=== PATIENT | male | born 1995 | race Two or more races ===

== ENCOUNTER 2022-01-08 21:22 | Emergency (ER) | payer SELFPAY ==
[2022-01-08 21:54] LABS: BASOPHIL 0.3 % (0-2); EOSINOPHIL 4.1 % (0-5); HCT 45.8 % (42.0-52.0); HGB 15.8 g/dl (13.2-18.0); LYMPHOCYTE 37.4 % (15-48); MCH 30.2 pg (25.0-31.0); MCHC 34.5 g/dL (32.0-36.0); MCV 87.6 fL (78.0-100.0); MONOCYTE 6.6 % (0-12); MPV 9.9 fL (6.0-9.5); NEUTROPHIL 51.1 % (41-80); NRBC 0; PLT 283 K/uL (150-400); RBC 5.23 M/uL (4.70-6.00); RDW 12.3 % (11.5-14.0); WBC 9.4 K/uL (4.0-10.5)
[2022-01-08 22:16] LABS: BILIRUBIN - TOTAL 0.3 mg/dL (0.2-1.0); BUN/CREAT RATIO (CALC) 13.3 RATIO; CREATININE 0.9 mg/dL (0.67-1.17); GLOBULIN (CALCULATION) 4.1 g/dL; POTASSIUM 3.6 mmol/L (3.5-5.1); TOTAL PROTEIN 8.1 g/dL (6.4-8.2)
[2022-01-08] MEDS ORDERED: PROTONIX 40MG T40 MG PO (22:47)
== END 2022-01-08 23:07 | disposition home or self-care (01) ==
LOC: FER 21:22
PROVIDERS: Emergency Medicine
DX: R07.89 Other chest pain (principal); K30 Functional dyspepsia
CPT/HCPCS: 36415; 80053; 83690; 84484; 85025; 93005